=== PATIENT | female | born 1955 | race Caucasian/White ===

== ENCOUNTER → 2017-12-30 | Day surgery (SDC) | payer BC ==
[~2017-12-30] MED LIST: LIDOCAINE 2% INJ (20 MG/ML) 20 ML MDV ONE
--- NOTE | 2017-12-31 13:41 | WOMENS IMAGING REPORT ---
EXAM DESCRIPTION: U/S BREAST BX; U/S BREAST BX EACH ADDT'L; RIGHT DIG DX MAMMO NO CHG COMPLETED DATE/TIME: 12/30/2017 10:39 am; 12/30/2017 11:46 am REASON FOR STUDY: UNSPECIFIED LUMP; N63.0; N63.0 RIGHT LUMP; N63.0 S/P RIGHT BREAST US BX FOR CLIP P LACEMENT N63.0 UNSPECIFIED LUMP IN UNSPECIFIED BREAST COMPARISON: None. TECHNIQUE: The procedure was discussed with the patient and the patient agreed to proceed. Outside imaging was reviewed from on [facility] 12/15/2017. Patient has subcentimeter nodules in t he right breast at the 12 and 6 o'clock position which are indeterminate for malignancy. These areas will be biopsied today. The patient was scanned and the area of interest in the 12 o'clock position 10 cm from the nipple of the right breast was localized. Area of interest at the 6 o'clock position, 5 cm from the nipple was also localized in the right breast. These correlate with the area of concern on prior imaging studi es. These areas were targeted for ultrasound-guided core biopsy. Right breast 12 o clock position: After sterile skin prep and 1.5 mL local lidocaine 1% for skin and deep tissue anesthesia, a 14 gauge coaxial core biopsy needle was used to obtain several cores of tissue from the lesion. Under ultras ound guidance, a V clip was placed in the areas sampled. There were no immediate post-procedure comp lications. Right breast 5 o clock position: After sterile skin prep and 1.5 mL local lidocaine 1% for skin and deep tissue anesthesia, a 14 gauge coaxial core biopsy needle was used to obtain several cores of tissue from the lesion. Under ultras ound guidance, a ribbon clip was placed in the areas sampled. There were no immediate post-procedure complications MAMMOGRAM: Post-procedure two view mammogram was acquired in the digital mammogram suite. The clips w ere in the expected location. No significant hematoma. 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 Pathology is concordant. LIMITATIONS: None. FINDINGS: Ultrasound guided breast biopsy as described above. POST PROCEDURE MAMMOGRAMS FOR MARKER PLACEMENT: Yes IMPRESSION: ULTRASOUND-GUIDED CORE BIOPSY OF THE RIGHT BREAST YIELDS A DIAGNOSIS OF INVASIVE WELL-DI FFERENTIATED DUCTAL CARCINOMA AT THE 12 O'CLOCK POSITION AND 6 O'CLOCK POSITION. BI-RADS 6 Known biopsy-proven malignancy. Appropriate action should be taken. COMMENT: COMMUNICATION: THESE RESULTS WERE DISCUSSED WITH THE PATIENT AND WITH DR. MCNULTY, 1330 HOURS 12/31/2017. PATIENT UNDERSTANDS THIS IS A MALIGNANT DIAGNOSIS. Patient medication list reviewed: Yes- Quality ID# [id number]:Eligible professional attests to documenting i n the medical record they obtained, updated, or reviewed the patient's current medications. TECHNICAL DOCUMENTATION: JOB ID: [id number] [employer]- All Rights Reserved Reading location - IP/workstation name: [email or web address]
--- NOTE | 2017-12-31 13:41 | WOMENS IMAGING REPORT ---
EXAM DESCRIPTION: U/S BREAST BX; U/S BREAST BX EACH ADDT'L; RIGHT DIG DX MAMMO NO CHG COMPLETED DATE/TIME: 12/30/2017 10:39 am; 12/30/2017 11:46 am REASON FOR STUDY: UNSPECIFIED LUMP; N63.0; N63.0 RIGHT LUMP; N63.0 S/P RIGHT BREAST US BX FOR CLIP P LACEMENT N63.0 UNSPECIFIED LUMP IN UNSPECIFIED BREAST COMPARISON: None. TECHNIQUE: The procedure was discussed with the patient and the patient agreed to proceed. Outside [facility] 12/15[facility]. Patient has subcentimeter nodules in t he right breast at the 12 and 6 o'clock position which are indeterminate for malignancy. These areas will be biopsied today. The patient was scanned and the area of interest in the 12 o'clock position 10 cm from the nipple of the right breast was localized. Area of interest at the 6 o'clock position, 5 cm from the nipple was also localized in the right breast. These correlate with the area of concern on prior imaging studi es. These areas were targeted for ultrasound-guided core biopsy. Right breast 12 o clock position: After sterile skin prep and 1.5 mL local lidocaine 1% for skin and deep tissue anesthesia, a 14 gauge coaxial core biopsy needle was used to obtain several cores of tissue from the lesion. Under ultras ound guidance, a V clip was placed in the areas sampled. There were no immediate post-procedure comp lications. Right breast 5 o clock position: After sterile skin prep and 1.5 mL local lidocaine 1% for skin and deep tissue anesthesia, a 14 gauge coaxial core biopsy needle was used to obtain several cores of tissue from the lesion. Under ultras ound guidance, a ribbon clip was placed in the areas sampled. There were no immediate post-procedure complications MAMMOGRAM: Post-procedure two view mammogram was acquired in the digital mammogram suite. The clips w ere in the expected location. No significant hematoma. 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 Pathology is concordant. LIMITATIONS: None. FINDINGS: Ultrasound guided breast biopsy as described above. POST PROCEDURE MAMMOGRAMS FOR MARKER PLACEMENT: Yes IMPRESSION: ULTRASOUND-GUIDED CORE BIOPSY OF THE RIGHT BREAST YIELDS A DIAGNOSIS OF INVASIVE WELL-DI FFERENTIATED DUCTAL CARCINOMA AT THE 12 O'CLOCK POSITION AND 6 O'CLOCK POSITION. BI-RADS 6 Known biopsy-proven malignancy. Appropriate action should be taken. COMMENT: COMMUNICATION: THESE RESULTS WERE DISCUSSED WITH THE PATIENT AND WITH DR. MCNULTY, 1330 HOURS 12/31/2017. PATIENT UNDERSTANDS THIS IS A MALIGNANT DIAGNOSIS. Patient medication list reviewed: Yes- Quality ID# [id number]:Eligible professional attests to documenting i n the medical record they obtained, updated, or reviewed the patient's current medications. TECHNICAL DOCUMENTATION: JOB ID: [id number] [employer]- All Rights Reserved Reading location - IP/workstation name: [email or web address]
--- NOTE | 2017-12-31 13:41 | WOMENS IMAGING REPORT ---
EXAM DESCRIPTION: U/S BREAST BX; U/S BREAST BX EACH ADDT'L; RIGHT DIG DX MAMMO NO CHG COMPLETED DATE/TIME: 12/30/2017 10:39 am; 12/30/2017 11:46 am REASON FOR STUDY: UNSPECIFIED LUMP; N63.0; N63.0 RIGHT LUMP; N63.0 S/P RIGHT BREAST US BX FOR CLIP P LACEMENT N63.0 UNSPECIFIED LUMP IN UNSPECIFIED BREAST COMPARISON: None. TECHNIQUE: The procedure was discussed with the patient and the patient agreed to proceed. Outside imaging was reviewed from on [facility] 12/15/2017. Patient has subcentimeter nodules in t he right breast at the 12 and 6 o'clock position which are indeterminate for malignancy. These areas will be biopsied today. The patient was scanned and the area of interest in the 12 o'clock position 10 cm from the nipple of the right breast was localized. Area of interest at the 6 o'clock position, 5 cm from the nipple was also localized in the right breast. These correlate with the area of concern on prior imaging studi es. These areas were targeted for ultrasound-guided core biopsy. Right breast 12 o clock position: After sterile skin prep and 1.5 mL local lidocaine 1% for skin and deep tissue anesthesia, a 14 gauge coaxial core biopsy needle was used to obtain several cores of tissue from the lesion. Under ultras ound guidance, a V clip was placed in the areas sampled. There were no immediate post-procedure comp lications. Right breast 5 o clock position: After sterile skin prep and 1.5 mL local lidocaine 1% for skin and deep tissue anesthesia, a 14 gauge coaxial core biopsy needle was used to obtain several cores of tissue from the lesion. Under ultras ound guidance, a ribbon clip was placed in the areas sampled. There were no immediate post-procedure complications MAMMOGRAM: Post-procedure two view mammogram was acquired in the digital mammogram suite. The clips w ere in the expected location. No significant hematoma. 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 Pathology is concordant. LIMITATIONS: None. FINDINGS: Ultrasound guided breast biopsy as described above. POST PROCEDURE MAMMOGRAMS FOR MARKER PLACEMENT: Yes IMPRESSION: ULTRASOUND-GUIDED CORE BIOPSY OF THE RIGHT BREAST YIELDS A DIAGNOSIS OF INVASIVE WELL-DI FFERENTIATED DUCTAL CARCINOMA AT THE 12 O'CLOCK POSITION AND 6 O'CLOCK POSITION. BI-RADS 6 Known biopsy-proven malignancy. Appropriate action should be taken. COMMENT: COMMUNICATION: THESE RESULTS WERE DISCUSSED WITH THE PATIENT AND WITH DR. MCNULTY, 1330 HOURS 12/31/2017. PATIENT UNDERSTANDS THIS IS A MALIGNANT DIAGNOSIS. Patient medication list reviewed: Yes- Quality ID# [id number]:Eligible professional attests to documenting i n the medical record they obtained, updated, or reviewed the patient's current medications. TECHNICAL DOCUMENTATION: JOB ID: [id number] [employer]- All Rights Reserved Reading location - IP/workstation name: [email or web address]
== END ==
LOC: RAD 12-28 08:22 → WI 09:10
PROVIDERS: ATTEND Internal Medicine
DX: N63.0 Unspecified lump in unspecified breast (principal); C50.911 Malignant neoplasm of unspecified site of right female breast; Z17.0 Estrogen receptor positive status [ER+]
CPT/HCPCS: 88342 ×2; 88341 ×2; 88305 ×2; 19083; 19084; J3490